=== PATIENT | male | born 1965 | race African-American/Black ===

== ENCOUNTER 2021-03-12 07:56 | Emergency (ER) | payer MEDICAID ==
[~2021-03-12] VITALS: Ht 175.3 cm; Wt 67.0 kg
[2021-03-12] MEDS ORDERED: IBUPROFEN600 MG PO (10:08)
[2021-03-12 10:24] VITALS: BP 123/78
== END 2021-03-12 10:28 | disposition home or self-care (01) ==
LOC: ED 07:56
DX: M54.5 Low back pain (principal)

== ENCOUNTER 2021-04-15 08:54 | Emergency (ER) | payer MEDICAID ==
[~2021-04-15] VITALS: Ht 175.3 cm; Wt 63.6 kg
[~2021-04-15 08:54] MED LIST: IBUPROFEN600 MG PO
[2021-04-15] MEDS ORDERED: KEPPRA750 M2 PO (10:15)
[2021-04-15] MEDS ORDERED: SEROQUEL100 MG PO (10:16)
[2021-04-15] MEDS ORDERED: BIKTARVY 50-2001 TAB PO (10:18)
[2021-04-15] MEDS ORDERED: MEGESTROL ACETA20 MG PO (10:19)
[2021-04-15] MEDS ORDERED: FLEXERIL5 M1 PO (10:20)
[2021-04-15] MEDS ORDERED: BUPROPION HCL100 M2 PO (10:21)
[2021-04-15] MEDS ORDERED: IBUPROFEN600 MG PO (10:21)
[2021-04-15 10:29] VITALS: BP 140/60
== END 2021-04-15 10:35 | disposition home or self-care (01) ==
LOC: ED 08:54
DX: M51.36 Other intervertebral disc degeneration, lumbar region (principal); G62.9 Polyneuropathy, unspecified; G40.909 Epilepsy, unspecified, not intractable, without status epilepticus; Z21 Asymptomatic human immunodeficiency virus [HIV] infection status

== ENCOUNTER 2021-04-26 07:34 | Emergency (ER) | payer MEDICAID ==
[~2021-04-26 07:34] MED LIST changes: +BIKTARVY 50-2001 TAB PO; +BUPROPION HCL100 M2 PO; +FLEXERIL5 M1 PO; +KEPPRA750 M2 PO; +MEGESTROL ACETA20 MG PO; +SEROQUEL100 MG PO
[2021-04-26 09:02] VITALS: BP 121/61
== END 2021-04-26 09:03 | disposition home or self-care (01) ==
LOC: ED 07:34
DX: M25.512 Pain in left shoulder (principal); G62.9 Polyneuropathy, unspecified; G40.909 Epilepsy, unspecified, not intractable, without status epilepticus; Z21 Asymptomatic human immunodeficiency virus [HIV] infection status; F17.200 Nicotine dependence, unspecified, uncomplicated; W06.XXXA Fall from bed, initial encounter; Y92.003 Bedroom of unspecified non-institutional (private) residence as the place of occurrence of the external cause

== ENCOUNTER 2021-05-08 07:44 | Emergency (ER) | payer MEDICAID ==
[~2021-05-08] VITALS: Ht 175.3 cm; Wt 70.0 kg
[2021-05-08 09:29] LABS: HEMATOCRIT 39.6 % (39.0-50.0); HEMOGLOBIN 13.2 g/dl (14.0-18.0); IMMATURE GRANULOCYTES 0.2 % (0.0-5.0); MEAN CELL VOLUME 100.3 fL CALC (80.0-100.0); MEAN CORPUSCULAR HGB 33.4 pG CALC (26.0-32.0); MEAN CORPUSCULAR HGB CONC 33.3 g/dL CAL (32.0-36.0); NEUT# 2.95 thou/uL (1.82-7.42); RED BLOOD COUNT 3.95 mill/uL (4.70-6.10); RED CELL DISTRI WIDTH 11.4 % (11.5-15.5)
[2021-05-08 09:46] LABS: ALBUMIN 4.2 g/dL (3.2-5.0); ALKALINE PHOSPHATASE 63 u/l (38-126); ANION GAP 10 (6-22 (CALC)); BILIRUBIN, TOTAL 0.8 mg/dL (0.0-1.4); BUN 17 mg/dL (9-20); BUN/CREATININE RATIO 14 (12-20 (CALC)); CARBON DIOXIDE 28 mmol/l (22-30); CHLORIDE 106 mmol/l (95-108); CREATININE 1.2 mg/dL (0.7-1.3); GFR > 60 ML/MIN (>=60 (CALC)); GFR FOR AFR.AMER. > 60 ML/MIN (>=60 (CALC)); LIPASE 61 u/l (23-300); POTASSIUM 4.4 mmol/l (3.5-5.1); SGOT/AST 24 u/l (17-59); SODIUM 139 mmol/l (137-146); TOTAL PROTEIN 7.7 g/dL (6.3-8.2)
[2021-05-08 11:30] VITALS: BP 130/79
== END 2021-05-08 11:30 | disposition home or self-care (01) ==
LOC: ED 07:44
PROVIDERS: Family Medicine
DX: R42 Dizziness and giddiness (principal); R09.81 Nasal congestion; M19.90 Unspecified osteoarthritis, unspecified site; G62.9 Polyneuropathy, unspecified; G40.909 Epilepsy, unspecified, not intractable, without status epilepticus; F17.200 Nicotine dependence, unspecified, uncomplicated; Z21 Asymptomatic human immunodeficiency virus [HIV] infection status; Z20.822 Contact with and (suspected) exposure to COVID-19

== ENCOUNTER 2021-06-05 13:01 | Emergency (ER) | payer MEDICAID | END 2021-06-05 13:18 | disposition left against medical advice (07) | DRG 951 | LOC: ED 13:01 → LWOBS 13:17 | DX: Z53.21 Procedure and treatment not carried out due to patient leaving prior to being seen by health care provider (principal) ==

== ENCOUNTER 2022-07-02 11:11 | Emergency (ER) | payer MEDICAID | END 2022-07-02 12:05 | disposition left against medical advice (07) | DRG 951 | LOC: ED 11:11 → LWOBS 12:05 | DX: Z53.21 Procedure and treatment not carried out due to patient leaving prior to being seen by health care provider (principal) ==